=== PATIENT | male | born 1930 | race Caucasian/White ===

== ENCOUNTER 2022-01-13 21:48 | Observation (INO) ==
[2022-01-14] MEDS ORDERED: Naloxone 0.4 MG/ML INJ IVP PRN (00:57)
[2022-01-14] MEDS ORDERED: Acetaminophen 325 MG TABLET PO PRN (00:57)
[2022-01-14] MEDS ORDERED: *HR* HYDROcodone/Acet 5/325 mg TABLET PO PRN (00:57)
[2022-01-14] MEDS ORDERED: Melatonin 3 MG TABLET PO PRN (00:57)
[2022-01-14] MEDS ORDERED: *HR* Dextrose 50 % in Water (Syg) 50 ML SYRINGE IVP PRN (00:59)
[2022-01-14] MEDS ORDERED: D5% in Water 1,000 ML IVC PRN (00:59)
[2022-01-14] MEDS ORDERED: Dextrose 4 GM Chewable Tablets PO PRN ×2 (00:59)
[2022-01-14] MEDS ORDERED: 0.9 % Sodium Chloride 1,000 ML IVC SCH (01:00)
[2022-01-14] MEDS ORDERED: Saliva Stimulant 44.3ml BOTTLE PO PRN (01:30)
[2022-01-14 01:55] LABS: Basophils % 0.5 %; Eosinophils # 0.3 K/mcL (0.0-0.6); Eosinophils % 3.9 %; Hematocrit 35.4 % (37.5-50.1); Hemoglobin 11.9 g/dL (12.9-16.9); Immature Granulocytes % 0.3 % (0-4); Lymphocytes # 2.3 K/mcL (0.6-4.6); Lymphocytes % 28.5 %; Mean Corpuscular HGB Conc 33.6 g/dL (31.6-35.5); Mean Corpuscular Hemoglobin 30.4 pg (28.0-33.3); Mean Corpuscular Volume 90.5 fL (83.0-100.0); Monocytes # 0.9 K/mcL (0.0-1.3); Monocytes % 11.8 %; Neutrophils # 4.4 K/mcL (1.6-8.9); Platelet Count 183 K/mcL (140-400); Red Blood Count 3.91 M/mcL (4.19-5.50); Red Cell Distribution Width 14.4 % (11.5-14.5)
[2022-01-14 02:03] LABS: INR 1.3
[2022-01-14 02:05] LABS: Activated Partial Thrombo Time 35.1 Seconds (26.0-36.0)
[2022-01-14 02:15] LABS: Alanine Aminotransferase 67 Units/L (7-52); Albumin 3.4 g/dL (3.5-5.7); Albumin/Globulin Ratio 1.5 (1.1-2.2); Alkaline Phosphatase 73 Units/L (34-104); Aspartate Amino Transferase 37 Units/L (13-39); BUN/Creatinine Ratio 19 (6-26); Bilirubin,Total 1.1 mg/dL (0.3-1.0); Blood Urea Nitrogen 23 mg/dL (8-23); Calcium 8.8 mg/dL (8.6-10.3); Carbon Dioxide 26 mEq/L (23-29); Chloride 106 mEq/L (98-107); Globulin 2.3 g/dL (2.4-3.5); Glucose 93 mg/dL (70-105); Magnesium 1.9 mg/dL (1.6-2.6); Osmolality,Calculated 297 (280-300); Phosphorous 3.4 mg/dL (2.7-4.5); Potassium 3.5 mEq/L (3.5-5.1); Sodium 142 mEq/L (136-145); Total Protein 5.7 g/dL (6.4-8.9); eGFR For African Americans > 60 (> 60); eGFR For Non-African Americans 57 (> 60)
[2022-01-14 02:18] LABS: Troponin I 0.07 ng/mL (< 0.04)
[2022-01-14] MEDS: Ipratropium/Albuterol Neb 3 ML IH SCH ×4 (03:41→20:06)
[2022-01-14] MEDS: *HR* Heparin 5,000 UNIT/ML VIAL SQ SCH ×3 (05:06→20:04)
[2022-01-14 05:46] LABS: Estimated Average Glucose 143 mg/dl; Hemoglobin A1C 6.6 %
[2022-01-14] MEDS ORDERED: Ampicillin/Sulbactam 3,000 MG in 0.9 % Sodium Chloride Mini Bag 100 ML IVPB SCH (06:00)
[2022-01-14 07:56] LABS: Chol/HDL Ratio 2.3 (0-4.9); Folate 15.2 ng/mL (3.0-16.0); Thyroid Stimulating Hormone 1.051 mcIU/mL (0.340-5.600)
[2022-01-14 08:14] LABS: % Iron Saturation 19 % (20-55); Ferritin 55 ng/mL (20-250); Iron 52 mcg/dL (65-175); Transferrin 200 mg/dL (203-362)
[2022-01-14] MEDS: Aspirin Enteric Coated 81 MG Tablet PO SCH (08:48)
[2022-01-14] MEDS: predniSONE 20 MG TABLET PO SCH (08:48)
[2022-01-14] MEDS: carvediloL 6.25 MG TABLET PO SCH ×2 (08:49→17:27)
[2022-01-14] MEDS: Isosorbide MONOnitrate (24 HR) 30 MG TAB.ER.24H PO SCH (08:49)
[2022-01-14] MEDS: *HR* LORazepam 1 MG TABLET PO SCH ×2 (08:50→20:05)
[2022-01-14] MEDS: Chlorhexidine Rinse 15 ML MOUTHWASH MM SCH ×3 (08:50→20:04)
[2022-01-14] MEDS: lisinopriL 20 MG TABLET PO SCH (08:50)
[2022-01-14] MEDS: Lactobacillus 1 EACH CAP.SPRINK PO SCH ×2 (08:50→20:05)
[2022-01-14] MEDS ORDERED: Furosemide 40 MG/4 ML VIAL IVP SCH (09:00)
[2022-01-14] MEDS ORDERED: Aspirin 81 MG TAB.CHEW PO SCH (09:00)
[2022-01-14] MEDS: Budesonide/Formoterol 160/4.5 1 PUFF INH IH SCH ×2 (11:02→20:06)
[2022-01-15] MEDS: *HR* Heparin 5,000 UNIT/ML VIAL SQ SCH ×2 (03:47→13:04)
[2022-01-15 04:49] LABS: Hematocrit 34.9 % (37.5-50.1); Hemoglobin 12.2 g/dL (12.9-16.9); Mean Corpuscular Hemoglobin 31.4 pg (28.0-33.3); Mean Corpuscular Volume 89.7 fL (83.0-100.0); Mean Platelet Volume 11.1 fL (9.4-12.4); Platelet Count 189 K/mcL (140-400); Red Blood Count 3.89 M/mcL (4.19-5.50); Red Cell Distribution Width 14.3 % (11.5-14.5); White Blood Count 8.6 K/mcL (4.3-11.1)
[2022-01-15 05:29] LABS: BUN/Creatinine Ratio 20 (6-26); Blood Urea Nitrogen 26 mg/dL (8-23); Calcium 8.6 mg/dL (8.6-10.3); Carbon Dioxide 26 mEq/L (23-29); Chloride 105 mEq/L (98-107); Glucose 134 mg/dL (70-105); Magnesium 2.2 mg/dL (1.6-2.6); Osmolality,Calculated 297 (280-300); Potassium 3.6 mEq/L (3.5-5.1); Sodium 140 mEq/L (136-145); eGFR For African Americans > 60 (> 60); eGFR For Non-African Americans 51 (> 60)
[2022-01-15] MEDS: Lactobacillus 1 EACH CAP.SPRINK PO SCH (08:18)
[2022-01-15] MEDS: Aspirin Enteric Coated 81 MG Tablet PO SCH (08:18)
[2022-01-15] MEDS: Isosorbide MONOnitrate (24 HR) 30 MG TAB.ER.24H PO SCH (08:18)
[2022-01-15] MEDS: predniSONE 20 MG TABLET PO SCH (08:19)
[2022-01-15] MEDS: lisinopriL 20 MG TABLET PO SCH (08:19)
[2022-01-15] MEDS: carvediloL 6.25 MG TABLET PO SCH (08:19)
[2022-01-15] MEDS: *HR* LORazepam 1 MG TABLET PO SCH (08:19)
[2022-01-15] MEDS: Chlorhexidine Rinse 15 ML MOUTHWASH MM SCH (08:21)
[2022-01-15] MEDS ORDERED: Furosemide 40 MG/4 ML VIAL IVP SCH (09:00)
[2022-01-15] MEDS: Budesonide/Formoterol 160/4.5 1 PUFF INH IH SCH (09:55)
[2022-01-15 10:57] VITALS: BP 136/68; PULSE 72; TEMP 97.3; O2SAT 94
== END 2022-01-15 16:39 | disposition home or self-care (01) ==
LOC: 2ANU → SUATTDRO 23:47
PROVIDERS: ADMIT Internal Medicine; ATTEND Internal Medicine